=== PATIENT | female | born 1980 | race Caucasian/White ===

== ENCOUNTER 2017-01-01 19:06 | Emergency (ER) | payer OTHER ==
[2017-01-01 19:12] VITALS: BP 130/69; PULSE 90; TEMP 98.4; BMI 28.1
[2017-01-01 20:45] LABS: BASOPHIL 0.2 % (0-2.0); EOSINOPHIL 0.8 % (0-4.5); MCH 29.9 pg (25.7-33.7); MCHC 33.8 g/dl (32.0-36.0); MEAN CELL VOLUME 88.3 fl (80-96); MEAN PLT VOLUME 7.6 fl (7.5-11.1); NEUTROPHILS 65.2 % (42.8-82.8); PLATELET COUNT 193 K/MM3 (134-434); RDW 12.9 % (11.6-15.6); WHITE BLOOD COUNT 6.6 K/mm3 (4.0-10.0)
--- NOTE | 2017-01-01 21:03 | PDOC ---
History of Present Illness - General Chief Complaint: Vaginal Bleeding Stated Complaint: VAGINAL BLEEDING/13 WKS Time Seen by Provider: 01/01/17 20:05 - History of Present Illness Initial Comments: 01/01/17 21:03 CHIEF COMPLAINT: vag bldg HISTORY OF PRESENT ILLNESS: 36-year-old female with no past medical history presents to ED with vaginal bleeding 2 hours. Patient reports that initially she had a little bit of bleeding "like spotting." But after a little while. She had an entire small towels soaked in blood. Afterward she put a pad on and no longer had any excessive bleeding. She denies any dizziness, lightheadedness, weakness, palpitations. She reports that she has had nausea and vomiting ever since the beginning of her that her DOG OBEDIENCE INSTRUCTOR told her that was normal and a good sign that her was progressing. She denies any abdominal cramping, or any other pain. No recent travel or sick contacts. PAST MEDICAL HISTORY: Denies past medical history FAMILY HISTORY: Denies SOCIAL HISTORY: Denies tobacco, alcohol, illicit drug use. SURGICAL HISTORY: Denies ALLERGIES: No known drug allergies REVIEW OF SYSTEMS General/Constitutional: Denies fever or chills. Denies weakness, weight change. HEENT: Denies change in vision. Denies ear pain or discharge. Denies sore throat. Cardiovascular: Denies chest pain or shortness of breath. Respiratory: Denies cough, wheezing, or hemoptysis. Gastrointestinal: Denies nausea, vomiting, diarrhea or constipation. Denies rectal bleeding. Genitourinary: Vaginal bleeding Denies dysuria, frequency, or change in urination. Musculoskeletal: Denies joint or muscle swelling or pain. Denies neck or back pain. Skin and breasts: Denies rash or easy bruising. Neurologic: Denies headache, vertigo, loss of consciousness, or loss of sensation. PHYSICAL EXAM General Appearance: Well-appearing, appropriately dressed. No apparent distress , no intoxication. HEENT: EOMI, PERRLA, normal ENT inspection, normal voice, TMs normal, pharynx normal. No conjunctival pallor. No photophobia, scleral icterus. Neck: Supple. Trachea midline. No tenderness, rigidity, carotid bruit, stridor , lymphadenopathy, or thyromegaly. Respiratory/Chest: Lungs CTAB. No shortness of breath, chest tenderness, respiratory distress, accessory muscle use. No crackles, rales, rhonchi, stridor , wheezing, dullness Cardiovascular: RRR. S1, S2. No JVD, murmur, bradycardia, tachycardia. Vascular Pulses: Dorsalis-Pedis (R): 2+, Dorsalis-Pedis (L): 2+ Gastrointestinal/Abdominal: Normal bowel sounds. Abdomen soft, non-distended. No tenderness or rebound tenderness. No organomegaly, pulsatile mass, guarding , hernia, hepatomegaly, splenomegaly. Pelvic: External genitalia normal without lesions. Vaginal vault with minimal bloody discharge. Cervix is long and closed. No cervical motion tenderness. Uterus is nontender and normal in size. Adnexa are nontender and without masses. Lymphatic: No adenopathy, tenderness. Musculoskeletal/Extremities: Normal inspection. FROM of all extremities, normal capillary refill. Pelvis Stable. No CVA tenderness. No tenderness to extremities, pedal edema, swelling, erythema or deformity. Integumentary: Appropriate color, dry, warm. No cyanosis, erythema, jaundice or rash Neurologic: sales professional bilingual II-XII intact. Fully oriented, alert. Appropriate mood/affect. Motor strength 5/5. No appreciable EOM palsy, facial droop or sensory deficit. 01/02/17 02:21 Past History - Past Medical History Allergies/Adverse Reactions: Allergies Allergy/AdvReac Type Severity Reaction Status Date / Time No Known Allergies Allergy Verified 01/01/17 19:10 Home Medications: Ambulatory Orders NK [No Known Home Medication] 01/01/17 - Reproductive History Is Patient Now?: Yes (#): 2 Para: 0 - Psycho/Social/Smoking Cessation Hx Suicidal Ideation: No Smoking History: Never smoked *Physical Exam - Vital Signs Last Vital Signs Temp Pulse Resp BP Pulse Ox 98.4 F 90 20 130/69 98 01/01/17 19:10 01/01/17 19:10 01/01/17 19:10 01/01/17 19:10 01/01/17 19:10 ED Treatment Course - LABORATORY CBC & Chemistry Diagram: 01/01/17 20:31 01/01/17 20:31 - ADDITIONAL ORDERS Additional order review: 01/01/17 20:31 RBC 3.54 L MCV 88.3 MCHC 33.8 RDW 12.9 MPV 7.6 Neutrophils % 65.2 Lymphocytes % 26.1 Monocytes % 7.7 Eosinophils % 0.8 Basophils % 0.2 Medical Decision Making - Medical Decision Making 01/02/17 02:24 36-year-old female with no past medical history presents to ED with vaginal bleeding 2 hours. -CBC, CMP, T&S -TV Ultrasound Labs unremarkable, patient blood type B+, no rhogam indicated. TV Ultrasound results - live IUP visualized, FHT 140 bpm. Advised patient to f/u with NUTRITION AIDE and of signs and symptoms for return to ER; patient verbalized understanding and agrees to plan. *DC/Admit/Observation/Transfer Diagnosis at time of Disposition: Vaginal bleeding - Discharge Dispostion Disposition: HOME Admit: No - Referrals Referrals: STAFF,NOT ON [Primary Care Provider] - - Patient Instructions Printed Discharge Instructions: DI for Vaginal Bleeding During Additional Instructions: Please keep your appointment with your OBGYN as planned next Wednesday. If you experience any new bleeding, fever, persistent vomiting, or any new or worsening symptoms, please return to the ER. - Post Discharge Activity Work/School Note: Back to Work
[2017-01-01 21:07] LABS: ANION GAP 8 (8-16); BILIRUBIN,TOTAL 0.4 mg/dL (0.2-1.0); CALCIUM 8.6 mg/dL (8.5-10.1); CO2 24 mmol/L (21-32); CREATININE 0.4 mg/dL (0.55-1.02); GLUCOSE,RANDOM 92 mg/dL (74-106); SGOT/AST 12 U/L (15-37); SGPT/ALT 18 U/L (12-78); TOT PROT 6.2 g/dl (6.4-8.2)
[2017-01-01 21:23] LABS: ALK PHOS 33 U/L (45-117)
--- NOTE | 2017-01-01 22:13 | PDOC ---
*Physical Exam - Vital Signs Last Vital Signs Temp Pulse Resp BP Pulse Ox 98.4 F 90 20 130/69 98 01/01/17 19:10 01/01/17 19:10 01/01/17 19:10 01/01/17 19:10 01/01/17 19:10 ED Treatment Course - LABORATORY CBC & Chemistry Diagram: 01/01/17 20:31 01/01/17 20:31 - ADDITIONAL ORDERS Additional order review: Laboratory Results 01/01/17 01/01/17 20:31 20:31 Sodium 138 Potassium 3.7 Chloride 106 Carbon Dioxide 24 Anion Gap 8 BUN 6 L Creatinine 0.4 L Creat Clearance w eGFR > 60 Random Glucose 92 Calcium 8.6 Total Bilirubin 0.4 AST 12 L ALT 18 Alkaline Phosphatase 33 L Total Protein 6.2 L Albumin 3.0 L Beta HCG, Quant 27430.7 Blood Type B POSITIVE Antibody Screen Negative 01/01/17 20:31 RBC 3.54 L MCV 88.3 MCHC 33.8 RDW 12.9 MPV 7.6 Neutrophils % 65.2 Lymphocytes % 26.1 Monocytes % 7.7 Eosinophils % 0.8 Basophils % 0.2 - RADIOLOGY Radiology Studies Ordered: Category Date Time Status <14WKS US [US] Stat Ultrasound 01/01/17 20:47 Ordered Medical Decision Making - Medical Decision Making 01/01/17 22:13 Pt seen by the Advanced Practice Provider under my direct supervision Pt interviewed and examined Ancillary studies reviewed I agree with plan as outlined by the Advanced Practice Provider ROM Shafer
== END 2017-01-01 23:12 | disposition home or self-care (01) ==
LOC: JER 19:06
DX: O46.92 Antepartum hemorrhage, unspecified, second trimester (principal); Z3A.14 14 weeks gestation of pregnancy
CPT/HCPCS: 36415; 76801-TC; 80053; 84702; 85025; 86850; 86900; 86901; 99282-25